=== PATIENT | female | born 1990 | race Caucasian/White ===

== ENCOUNTER 2016-05-16 22:29 | Emergency (ER) | payer SELFPAY ==
[~2016-05-16] VITALS: Ht 162.6 cm; Wt 66.0 kg
[2016-05-16 22:35] VITALS: Ht 162.6 cm; Wt 66.0 kg
== END 2016-05-16 23:54 | disposition left against medical advice (07) ==
LOC: FTE 22:29
DX: Z53.21 Procedure and treatment not carried out due to patient leaving prior to being seen by health care provider (principal)